=== PATIENT | male | born 1995 | race Caucasian/White ===

== ENCOUNTER 2018-01-13 15:11 | Emergency (ER) | payer SELFPAY ==
[2018-01-13] MEDS ORDERED: ABX (16:21)
== END 2018-01-13 15:43 | disposition left against medical advice (07) ==
LOC: EMS 15:14
DX: M79.602 Pain in left arm (principal); Z53.21 Procedure and treatment not carried out due to patient leaving prior to being seen by health care provider

== ENCOUNTER 2018-01-13 16:13 | Emergency (ER) | payer MEDICAID ==
[~2018-01-13] VITALS: Ht 182.9 cm; Wt 79.5 kg
[2018-01-13] MEDS ORDERED: ABX (16:21)
[2018-01-13 18:16] VITALS: BP 125/82
== END 2018-01-13 18:17 | disposition home or self-care (01) ==
LOC: EMS 16:14
DX: L03.114 Cellulitis of left upper limb (principal); R03.0 Elevated blood-pressure reading, without diagnosis of hypertension; F11.10 Opioid abuse, uncomplicated; F17.210 Nicotine dependence, cigarettes, uncomplicated; Z02.89 Encounter for other administrative examinations; Z88.0 Allergy status to penicillin
CPT/HCPCS: 99283